=== PATIENT | male | born 1980 | race Caucasian/White ===

== ENCOUNTER 2017-03-01 18:34 | Emergency (ER) | payer BC ==
--- NOTE | ~2017-03-01 | CR142 ---
[facility] A Service of [facility] RADIOLOGY TEXT RESULTS PATIENT: YENIFER GUTIERREZ LOCATION: CFTX : 82 UNIT #: [id number] AGE: [address]: Marta Cantu APRN SEX: M ORDER DR: [id number] [facility] [address] [place], [place] [address] [id number] E MR#: [id number] Acc #: [id number] NAME: YENIFER GUTIERREZ : 1980 SEX: M STUDY DATE/TIME: 03/01/2017 17:24 UNIT: [facility] ROOM: STUDY DESCRIPTION: CR Hand Min 3 Views Rt Attending Physician: Marta Cantu A.P.R.N. Ordering Physician: Ed Doctor [id number] [facility] Primary Care Physician: No Primary Care Physician MEDICAL IMAGING REPORT This report is preliminary unless electronic signature is present EXAM Right hand, 3 views HISTORY Hand pain and swelling for 2 days after fall and dog bite. FINDINGS 3 views of the right hand demonstrate normal bone alignment. No fracture, joint space narrowing or dislocation. No abnormal sclerosis. Mild soft tissue swelling of the mid fifth digit over the middle phalanx. There is also mild soft tissue swelling over the dorsum of the hand. IMPRESSION 1. No fracture. 2. Satisfactory bone alignment. 3. Mild soft tissue swelling over the dorsum of the hand and in the mid fifth digit. Dictated by... Aaron Monroy M.D. THIS IS AN ELECTRONICALLY VERIFIED REPORT Aaron Monroy M.D. at 03/01/2017 10:59 PM WHIT/ankita TD: 03/01/2017 21:41 JOB #: [id number] MEDICAL IMAGING REPORT Page 1 of 1 COPY
== END 2017-03-01 18:43 | disposition home or self-care (01) ==
LOC: CFTX 18:34
DX: S60.221A Contusion of right hand, initial encounter (principal); F32.9 Major depressive disorder, single episode, unspecified; F17.210 Nicotine dependence, cigarettes, uncomplicated; W20.8XXA Other cause of strike by thrown, projected or falling object, initial encounter; Y92.009 Unspecified place in unspecified non-institutional (private) residence as the place of occurrence of the external cause
CPT/HCPCS: 29280; 73130; 99283